=== PATIENT | female | born 1950 | race Caucasian/White ===

== ENCOUNTER 2016-07-10 17:37 | Emergency (ER) | payer OTHER ==
[2016-07-10 17:49] VITALS: BP 123/78; PULSE 60; TEMP 98; BMI 31.9
--- NOTE | 2016-07-10 17:55 | PDOC ---
[id number] No Limitations - History of Present Illness Initial Comments: 07/10/16 17:57 The patient is a 65 year old female, with no significant past medical history who presents to the emergency department with left wrist pain occurring today. She reports walking her daughters four dogs, falling on her bent left hand. She reports since then having 10/10 pain in her wrist, with any movement or weight bearing activity. She denies any numbness and tingling in her LE. She denies recent fevers, chills, headache or dizziness. She denies recent nausea, vomit, diarrhea or constipation. Allergies: NKA Past surgical history: See HPI Social history: Nonsmoker. Denies EtOH and drug use. <Darren Glass - Last Filed: 07/10/16 17:57> <Sherlyn Roque - Last Filed: 07/17/16 08:29> - General Chief Complaint: Pain, Acute Stated Complaint: left wrist pain Time Seen by Provider: 07/10/16 17:40 Past History <Darren Glass - Last Filed: 07/10/16 17:57> - Past Medical History Anemia: No Asthma: No Cancer: No Cardiac Disorders: No (STATES "IRREGULAR" HEARTBEATS ON EKG, CARDIAC W/Us HAVE ALWAYS BEEN NEG.) CVA: No COPD: No CHF: No Dementia: No Diabetes: No GI Disorders: No Disorders: No HTN: No Hypercholesterolemia: No Liver Disease: No Seizures: No Thyroid Disease: No - Surgical History Abdominal Surgery: No Appendectomy: No Cardiac Surgery: No Cholecystectomy: No Lung Surgery: No Neurologic Surgery: No Orthopedic Surgery: No - Psycho/Social/Smoking Cessation Hx Anxiety: No Suicidal Ideation: No Smoking History: Never smoked Have you smoked in the past 12 months: No Hx Alcohol Use: No Drug/Substance Use Hx: No Substance Use Type: Alcohol Hx Substance Use Treatment: No <Sherlyn Roque - Last Filed: 07/17/16 08:29> - Past Medical History Allergies/Adverse Reactions: Allergies Allergy/AdvReac Type Severity Reaction Status Date / Time No Known Allergies Allergy Verified 07/10/16 17:45 Home Medications: Ambulatory Orders Ibuprofen [Motrin -] 600 mg PO TID PRN #21 tablet 07/10/16 Zolpidem Tartrate [Ambien] 5 mg PO PRN PRN 02/24/17 Oxycodone HCl/Acetaminophen [Percocet 5-325 mg Tablet] 1 - 2 tab PO Q6H PRN #50 tablet MDD 8 07/16/16 Review of Systems - Review of Systems Able to Perform ROS?: Yes Comments:: 07/10/16 17:57 GENERAL/CONSTITUTIONAL: No fever or chills. No weakness. HEAD, EYES, EARS, NOSE AND THROAT: No change in vision. No ear pain or discharge. No sore throat. CARDIOVASCULAR: No chest pain or shortness of breath. RESPIRATORY: No cough, wheezing, or hemoptysis. GASTROINTESTINAL: No nausea, vomiting, diarrhea or constipation. GENITOURINARY: No dysuria, frequency, or change in urination. MUSCULOSKELETAL: +left wrist pain. No muscle swelling or pain. No neck or back pain. SKIN: No rash NEUROLOGIC: No headache, vertigo, loss of consciousness, or change in strength/ sensation. ENDOCRINE: No increased thirst. No abnormal weight change. HEMATOLOGIC/LYMPHATIC: No anemia, easy bleeding, or history of blood clots. ALLERGIC/IMMUNOLOGIC: No hives or skin allergy. <Darren Glass - Last Filed: 07/10/16 17:57> *Physical Exam - Vital Signs Last Vital Signs Temp Pulse Resp BP Pulse Ox 98 F 60 16 123/78 100 07/10/16 17:38 07/10/16 17:38 07/10/16 17:38 07/10/16 17:38 07/10/16 17:38 - Physical Exam Comments: 07/10/16 17:57 GENERAL: Awake, alert, and fully oriented, in no acute distress EXTREMITIES: Obvious deformity to the left wrist distal and neurovascular intact. NEUROLOGICAL: Cranial nerves II through XII grossly intact. Normal speech, normal gait SKIN: Warm, Dry, normal turgor, no rashes or lesions noted. <Darren Glass - Last Filed: 07/10/16 17:57> - Vital Signs Last Vital Signs Temp Pulse Resp BP Pulse Ox 98 F 60 16 123/78 100 07/10/16 17:38 07/10/16 17:38 07/10/16 17:38 07/10/16 17:38 07/10/16 17:38 <Sherlyn Roque - Last Filed: 07/17/16 08:29> Medical Decision Making - Medical Decision Making 07/10/16 19:[address] Salas at shift change. She was reduced and splinted by ortho , awaiting repeat XR. I have sent rx to pharmacy for pain, and she will f/u with ortho. <Sherlyn Roque - Last Filed: 07/17/16 08:29> *DC/Admit/Observation/Transfer - Attestations Scribe Attestion: 07/10/16 17:57 Documentation prepared by Darren Glass, acting as biomedical engineering professor for Sherlyn Roque MD. <Darren Glass - Last Filed: 07/10/16 17:57> - Discharge Dispostion Admit: No <Sherlyn Roque - Last Filed: 07/17/16 08:29> Diagnosis at time of Disposition: Distal radius fracture, left Qualifiers: Encounter type: initial encounter Fracture type: closed Fracture morphology: unspecified fracture morphology Qualified Code(s): S52.502A - Unspecified fracture of the lower end of left radius, initial encounter for closed fracture - Discharge Dispostion Disposition: HOME Condition at time of disposition: Stable - Prescriptions Prescriptions: Ibuprofen [Motrin -] 600 mg PO TID PRN #21 tablet PRN Reason: Pain - Referrals Referrals: Russell Correa MD [Staff Physician] - - Patient Instructions Printed Discharge Instructions: DI for Forearm Fracture, How to Take Care of Your Splint Additional Instructions: For the pain take ibuprofen 600 mg as often as 3 times a day with food don't take on an empty stomach. If he needs something stronger you can take Percocet one tablet as often as every 4-6 hours if needed. The Percocet will make you drowsy so you do not operate a motor vehicle or do anything that requires your concentration if taking the Percocet. In addition to that the Percocet will make you constipated. Follow-up with the orthopedist as per his instructions. Return to the emergency department immediately with ANY new, persistent or worsening symptoms. Continue any medications as previously prescribed by your physician. You should follow up with your primary doctor as soon as possible regarding today's emergency department visit. . Please make sure your doctor reviews the results of your emergency evaluation. Thank you for coming to the Emergency Department today for your care. It was a pleasure to see you today. Please note that your evaluation is INCOMPLETE until you follow-up with your doctor.
[2016-07-10] MEDS ORDERED: IBUPROFEN 600 MG TABLET (FP) PO ONE ×2 (17:56→18:06)
--- NOTE | 2016-07-10 20:40 | PDOC ---
*Physical Exam - Vital Signs Last Vital Signs Temp Pulse Resp BP Pulse Ox 98 F 60 16 123/78 100 07/10/16 17:38 07/10/16 17:38 07/10/16 17:38 07/10/16 17:38 07/10/16 17:38 ED Treatment Course - Medications Given in the ED: ED Medications Discontinued Medications Generic Name Dose Route Start Last Admin Trade Name Duncanq PRN Reason Stop Dose Admin Ibuprofen 600 mg 07/10/16 17:56 07/10/16 18:06 Motrin - PO 07/10/16 17:57 600 mg ONCE ONE Administration Progress Note - Progress Note Progress Note: Care of this patient was transferred to sc from Dr. Roque at 2000 hrs. Patient sustained a fracture of her left wrist that was seen and evaluated and casted by the orthopedist I followed up on the post reduction x-ray which does show a fractured wrist but improved alignment and decrease in the angulation. Patient discharged home with sling and will follow-up with the orthopedist as per orthopedist instructions *DC/Admit/Observation/Transfer Diagnosis at time of Disposition: Distal radius fracture, left Qualifiers: Encounter type: initial encounter Fracture type: closed Fracture morphology: unspecified fracture morphology Qualified Code(s): S52.502A - Unspecified fracture of the lower end of left radius, initial encounter for closed fracture - Discharge Dispostion Disposition: HOME Condition at time of disposition: Stable - Prescriptions Prescriptions: Ibuprofen [Motrin -] 600 mg PO TID PRN #21 tablet PRN Reason: Pain Oxycodone HCl/Acetaminophen [Percocet 5-325 mg Tablet] 1 tab PO Q6H PRN #12 tablet MDD 4 tabs PRN Reason: Severe Pain - Referrals Referrals: Russell Correa MD [Staff Physician] - - Patient Instructions Printed Discharge Instructions: DI for Forearm Fracture, How to Take Care of Your Splint Additional Instructions: For the pain take ibuprofen 600 mg as often as 3 times a day with food don't take on an empty stomach. If he needs something stronger you can take Percocet one tablet as often as every 4-6 hours if needed. The Percocet will make you drowsy so you do not operate a motor vehicle or do anything that requires your concentration if taking the Percocet. In addition to that the Percocet will make you constipated. Follow-up with the orthopedist as per his instructions. Return to the emergency department immediately with ANY new, persistent or worsening symptoms. Continue any medications as previously prescribed by your physician. You should follow up with your primary doctor as soon as possible regarding today's emergency department visit. . Please make sure your doctor reviews the results of your emergency evaluation. Thank you for coming to the Emergency Department today for your care. It was a pleasure to see you today. Please note that your evaluation is INCOMPLETE until you follow-up with your doctor. - Post Discharge Activity
--- NOTE | 2016-07-10 22:32 | CONS ---
DATE OF CONSULTATION: 07/10/2016 EMERGENCY ROOM ORTHOPEDIC CONSULTATION HISTORY: Patient is a 65-year-old female status post fall today, presented with an obvious deformity of the left wrist to the [facility] emergency room. X-ray revealed distal radius fracture displaced, and this necessitated orthopedic consultation. Patient denies any significant past medical history. PHYSICAL EXAMINATION: She has an obvious distal radius deformity, but intact ulnar, medial, and radial sensation and motor. Full range of motion of the shoulder, elbow, and fingers. Defect on distal radius. Otherwise, neurovascularly intact. X-rays showed a comminuted left distal radius fracture with dorsal angulation. IMPRESSION: Left displaced dorsal angulated distal radius fracture. PLAN: Hematoma block and then a closed reduction and application of a U splint. Post reduction x-ray showed acceptable position. Patient will be iced and elevated, and referred to my partner Dr. Correa, in 2 days' time for definitive treatment, possible either casting or operative intervention. MEMO BECKETT M.D. [id number]
== END 2016-07-10 20:40 | disposition home or self-care (01) ==
LOC: FER 17:37
PROC: 2W3FX1Z Immobilization of Left Hand using Splint (ICD-10-PCS; principal; 2016-07-10)
PROC: 0RSPXZZ Reposition Left Wrist Joint, External Approach (ICD-10-PCS; 2016-07-10)
DX: S52.502A Unspecified fracture of the lower end of left radius, initial encounter for closed fracture (principal); W18.31XA Fall on same level due to stepping on an object, initial encounter; Y93.K1 Activity, walking an animal; Y92.410 Unspecified street and highway as the place of occurrence of the external cause
CPT/HCPCS: 73110-TC-LT; 99284-25

== ENCOUNTER 2016-07-16 05:18 | Day surgery (SDC) | payer OTHER ==
[2016-07-12 13:12] VITALS: BMI 31.3
[2016-07-16] MEDS ORDERED: LIDOCAINE HCL 1%, 10 MG/ML (20ML VIAL) ONE (12:33)
[2016-07-16] MEDS ORDERED: BUPIVACAINE HCL/PF 0.5% (5MG/ML) 10 ML VIAL ONE (12:33)
--- NOTE | 2016-07-16 14:29 | HP ---
[facility]ellite [facility] - Chief Complaint Chief Complaint: left wrist fx - Past Medical History Allergies/Adverse Reactions: Allergies Allergy/AdvReac Type Severity Reaction Status Date / Time No Known Allergies Allergy Verified 07/12/16 13:16 - Current Medications Current Medications: Home Medications Medication Instructions Recorded Ibuprofen [Motrin -] 600 mg PO TID PRN #21 tablet 07/10/16 Zolpidem Tartrate [Ambien] 5 mg PO PRN PRN 07/12/16 Acetaminophen [Tylenol 1,000 mg PO Q6H PRN 07/16/16 .Extra-Strength -] Oxycodone HCl/Acetaminophen 1 - 2 tab PO Q6H PRN #50 tablet 07/16/16 [Percocet 5-325 mg Tablet] MDD 8 Satellite Physical Exam - Physical Examination Vital Signs: Vital Signs Period Temp Pulse Resp BP Sys/Patton Pulse Ox Last 24 Hr 97.6 F 76 18 116/58 98 General Appearance: Well Nourished, Well Developed, Alert & Oriented x3 ENT: Clear Lung: Normal air movement Heart: Regular rate & rhythm Extremities: Other (left wrist- splint intact, + swelling, +ttp, nvi) Neurological: Intact, Alert, Oriented [facility]ellite Impression/Plan - Impression/Plan Impression: left distal radius fx- displaced Operative Procedure: left distal radius orif Date to be Performed: 07/16/16
[2016-07-16] MEDS ORDERED: ROPIVACAINE HCL 0.5% 30ML VIAL ONE (14:38)
[2016-07-16] MEDS ORDERED: MIDAZOLAM HCL 2 MG/2 ML SINGLE DOSE VIAL ONE ×2 (14:40)
[2016-07-16] MEDS ORDERED: PROPOFOL 20 ML ONE (15:05)
[2016-07-16] MEDS ORDERED: SUCCINYLCHOLINE CHLORIDE 200 MG/10 ML VIAL ONE (15:05)
[2016-07-16] MEDS ORDERED: LIDOCAINE HCL/PF 2% SDV 5ML VIAL ONE (15:05)
[2016-07-16] MEDS ORDERED: ceFAZolin SODIUM 1 GM VIAL IVPB ONE (15:19)
[2016-07-16] MEDS ORDERED: ONDANSETRON 4 MG/2 ML VIAL ONE (16:07)
[2016-07-16] MEDS ORDERED: DEXAMETHASONE SOD PHOSPHATE 4 MG/1 ML VIAL ONE (16:07)
--- NOTE | 2016-07-16 16:26 | OP ---
Operative Note - Note: Operative Date: 07/16/16 Pre-Operative Diagnosis: comminuted, intra articular distal radius fracture Operation: ORIF left distal radius Implants: [employer] low profile, titanium, low profile plate Post-Operative Diagnosis: Same as Pre-op Surgeon: Russell Correa Director Of Institutional Sales: Darren Lerma Anesthesiologist/RX SPECIALIST: Jalen Conroy Anesthesia: General, Local Estimated Blood Loss (mls): 0 Blood Volume Replaced (mls): 0 Fluid Volume Replaced (mls): 500 Operative Report Dictated: Yes
[2016-07-16] MEDS ORDERED: PROMETHAZINE HCL 25 MG/1 ML VIAL IVPUSH PRN (16:33)
[2016-07-16] MEDS ORDERED: oxyCODONE HCL 5 MG TABLET PO PRN (16:33)
[2016-07-16] MEDS ORDERED: ONDANSETRON 4 MG/2 ML VIAL IVPUSH PRN (16:33)
[2016-07-16] MEDS ORDERED: LABETALOL HCL 5 MG/1 ML (100MG/20 ML VIAL) ONE (16:36)
[2016-07-16] MEDS ORDERED: hydrALAZINE HCL 20 MG/ML VIAL ONE (17:12)
[2016-07-16] MEDS ORDERED: hydrALAZINE HCL 20 MG/ML VIAL IVPUSH ONE ×2 (17:15→18:07)
[2016-07-16] MEDS ORDERED: HYDROmorphone HCL CARPU-JECT 2 MG/1 ML DISP.SYRIN ONE (17:56)
[2016-07-16] MEDS ORDERED: ACETAMINOPHEN INJECTION 100 ML IVPB ONE (17:56)
[2016-07-16] MEDS ORDERED: ACETAMINOPHEN 1000 MG/100 ML VIAL (NON FORMULARY) IVPB ONE ×2 (17:59→18:07)
[2016-07-16] MEDS ORDERED: HYDROmorphone HCL CARPU-JECT 1 MG/1 ML DISP.SYRIN IVPUSH PRN (18:07)
[2016-07-16] MEDS ORDERED: HYDROmorphone HCL CARPU-JECT 2 MG/1 ML DISP.SYRIN IVPUSH ONE (18:11)
[2016-07-16 19:01] VITALS: TEMP 99
[2016-07-16] MEDS ORDERED: oxyCODONE HCL 5 MG TABLET ONE (19:10)
[2016-07-16] MEDS ORDERED: oxyCODONE HCL 5 MG TABLET PO ONE (19:15)
[2016-07-16 19:37] VITALS: BP 120/74; PULSE 89
--- NOTE | 2016-07-17 05:29 | OP ---
DATE OF OPERATION: 07/16/2016 PREOPERATIVE DIAGNOSIS: Comminuted intraarticular displaced left distal radius fracture. POSTOPERATIVE DIAGNOSIS: Comminuted intraarticular displaced left distal radius fracture. PROCEDURE: Left distal radius open reduction internal fixation. SURGEON: Martín Lara MD DIRECTOR BIOMEDICAL ENGINEERING: LISA Garay. ANESTHESIA: Left interscalene block, LMA anesthesia. DRAINS: None. COMPLICATIONS: None. FLUID REPLACEMENT: PlasmaLyte, 500 mL. SPECIMENS: None. BLOOD LOSS: None. BLOOD GIVEN: None. INDICATIONS: This patient is a 65-year-old female with a preoperative diagnosis of a comminuted, intraarticular, displaced left distal radius fracture. After understanding the potential risks, complications, alternatives, and benefits of surgery versus nonsurgical treatment, the patient elected to undergo this procedure. DESCRIPTION OF PROCEDURE: The patient was brought to the operating room. Peripheral IV placed. IV sedation given. IV Ancef, 1 g, was given. A left interscalene block was performed. LMA anesthesia was induced. Left upper extremity was prepped and draped in sterile fashion, elevated, exsanguinated with an Esmarch bandage. Tourniquet was inflated to 250 mmHg. A typical FCR approach was marked out with a marking pen. Incision made with No. 15 scalpel blade. Subcutaneous hemostasis was achieved with a bipolar cautery. Dissection done with the Littler scissors down to the FCR. The roof of the FCR was opened. Weitlaner self-retaining retractors were placed into the wound protecting the brachial artery. The deep fascia was incised with a No. 15 scalpel blade. Blunt dissection was done with my finger down to the volar aspect of the distal radius. Two self-retaining Weitlaner retractors were placed into the wound. The pronator quadratus was directly visualized. Fresh No. 15 scalpel blade as well as a periosteal elevator was utilized to take the pronator quadratus off of the distal radius. The area was irrigated and washed out. There were multiple fracture fragments. Reduction was performed. X-rays were taken to document that the provisional reduction was quite good. Next, a thin [employer] Low Profile DVR left-sided plate was applied, held in place with 2 K-wires. X-rays were checked. It was in a good position. One distal screw was put in and one proximal screw, purple, 12 mm in legth, was put in. Additional x-rays were taken showing excellent position of the fracture fragments. The articular cartilage looked well reduced. The volar buttress plate was then in excellent position, and subchondral screws were in excellent position. Therefore, the rest of the screws were placed. Two proximal screws of 12 mm and 10 mm in length, purple, 3.5 mm in diameter. The other screws were all partially threaded locking screws from 20 mm to 24 mm in length. Final x-rays were taken, AP, lateral, and multiple oblique planes. Overall, the subchondral support position was excellent. I was very happy with the position of the radial styloid, which was previously quite displaced. All the fracture fragments were held in place. The area was copiously irrigated and washed. The pronator quadratus could not be repaired over the plate. The deep dermal layer was closed with 4-0 undyed Vicryl. Final skin approximation was done with a running subcuticular 4-0 Biosyn. The area was then washed and dried, covered with Steri-Strips, 4x4s, fluffs between the fingers, Webril, and a 4-inch Ortho-Glass splint was applied, wrapped with Avelina and Coban, and tourniquet was taken down after a total tourniquet time of about 40 minutes. There were no complications during the case. Patient tolerated the procedure quite well and was brought to the ambulatory recovery room in stable condition. MARTÍN LARA M.D. [id number]
== END 2016-07-16 19:45 | disposition home or self-care (01) ==
LOC: JASU-SURG 05:18
PROVIDERS: ATTEND Orthopaedic Surgery
PROC: 0PSJ04Z Reposition Left Radius with Internal Fixation Device, Open Approach (ICD-10-PCS; principal; 2016-07-16 14:30)
DX: S52.502A Unspecified fracture of the lower end of left radius, initial encounter for closed fracture (principal); X58.XXXA Exposure to other specified factors, initial encounter; Y93.9 Activity, unspecified; Y92.9 Unspecified place or not applicable
CPT/HCPCS: 76000-TC; 94760